=== PATIENT | female | born 1975 | race Caucasian/White ===

== ENCOUNTER 2017-08-22 05:19 | Inpatient (IN) | payer OTHER ==
[2017-08-22] MEDS ORDERED: OBEPIDURAL* 250 ML EPIDURAL ONE (08:38)
[2017-08-22 08:47] LABS: Hematocrit 37 % (35-47); Hemoglobin 12.4 g/dl (12.0-16.0); Mean Corpuscular HGB Conc 34 g/dl (31-36); Mean Corpuscular Hemoglobin 32 pg (27-31); Mean Corpuscular Volume 95 fL (80-97); Mean Platelet Volume 12 um3 (7.4-10.4); Platelet Count 124 10^3/ul (150-450); Red Blood Count 3.84 10^6/ul (4.0-5.4); Red Cell Distribution Width 13 % (10.5-15); White Blood Count 8.7 10^3/ul (3.5-10.8)
[2017-08-22] MEDS ORDERED: Famotidine TAB* 20 MG PO PRN (09:03)
[2017-08-22] MEDS ORDERED: Phenylephrine IV* 40 MCG/ML 10 ML SYRINGE IV PUSH PRN ×2 (09:03)
[2017-08-22] MEDS ORDERED: Sodium Citrate/Citric Acid* 15 ML UDC PO PRN (09:03)
[2017-08-22] MEDS ORDERED: EPHEDrine (Pressors)* 50 MG/ML VIAL IV PUSH PRN ×2 (09:03)
[2017-08-22 09:26] LABS: ABS Basophils 0 10^3/ul (0-0.2); ABS Eosinophils 0.2 10^3/ul (0-0.6); ABS Lymphocytes 1.6 10^3/ul (1.0-4.8); ABS Monocytes 0.6 10^3/ul (0-0.8); ABS Neutrophils 6.2 10^3/ul (1.5-7.7); ABS Nucleated RBC 0 10^3/ul; Eosinophil % 2.7 % (0-6); Lymphocyte % 18.7 % (25-47); Nucleated Red Blood Cells % 0.1
[2017-08-22] MEDS ORDERED: OBEPIDURAL* 250 ML EPIDURAL SCH (10:00)
[2017-08-22] MEDS ORDERED: Oxytocin in LR* 20 UNITS/1,000 ML BAG IVPB ONE (11:41)
[2017-08-22] MEDS ORDERED: Acetaminophen TAB* 325 MG PO PRN (17:49)
[2017-08-22] MEDS ORDERED: RHO D Immune Globulin (HUMAN)* 300 MCG = 1,500 I.U. INJ IM ONE (17:49)
[2017-08-22] MEDS ORDERED: Tetan/Diph/Pertus SYR(Tdap)* 0.5 ML SYR(BOOSTRIX) use SYR IM ONE (17:49)
[2017-08-22] MEDS ORDERED: Witch Hazel PAD* JAR TOPICAL PRN (17:49)
[2017-08-22] MEDS ORDERED: Dibucaine 1% 28.35 GM TUBE PR PRN (17:49)
[2017-08-22] MEDS ORDERED: Oxytocin in LR* 20 UNITS/1,000 ML BAG IVPB SCH (18:00)
[2017-08-22] MEDS: Ibuprofen TAB* 600 MG PO PRN (18:56)
[2017-08-22] MEDS ORDERED: Simethicone TAB* 80 MG TAB.CHEW PO SCH (21:00)
[2017-08-22] MEDS: Docusate CAP* 100 MG PO SCH (21:26)
[2017-08-23] MEDS: Ibuprofen TAB* 600 MG PO PRN ×4 (02:12→20:57)
[2017-08-23 06:56] LABS: Hematocrit 29 % (35-47); Hemoglobin 9.8 g/dl (12.0-16.0); Mean Corpuscular HGB Conc 34 g/dl (31-36); Mean Corpuscular Hemoglobin 32 pg (27-31); Mean Corpuscular Volume 95 fL (80-97); Red Blood Count 3.05 10^6/ul (4.0-5.4); Red Cell Distribution Width 13 % (10.5-15); White Blood Count 14.8 10^3/ul (3.5-10.8)
[2017-08-23 07:28] LABS: ABS Basophils 0.1 10^3/ul (0-0.2); ABS Eosinophils 0.1 10^3/ul (0-0.6); ABS Lymphocytes 1.8 10^3/ul (1.0-4.8); ABS Monocytes 0.9 10^3/ul (0-0.8); ABS Nucleated RBC 0 10^3/ul; Eosinophil % 0.5 % (0-6); Mean Platelet Volume 12 um3 (7.4-10.4); Nucleated Red Blood Cells % 0; Platelet Count 118 10^3/ul (150-450)
[2017-08-23] MEDS: Docusate CAP* 100 MG PO SCH ×3 (07:46→20:56)
[2017-08-23] MEDS: Ferrous Gluconate TAB* 324 MG TAB PO SCH ×2 (07:46→20:56)
[2017-08-24] MEDS: Ibuprofen TAB* 600 MG PO PRN (06:48)
--- NOTE | 2017-08-24 07:41 | PTEDU ---
Patient Name: KANDIS LYN KANDIS LYN selected video: BBOB: Nurturing Your Gorgeous &Growing Baby by to view on 08/24/2017 at 7:40:39 AM [id number]
[2017-08-24 08:02] VITALS: BP 117/71
[2017-08-24] MEDS: Ferrous Gluconate TAB* 324 MG TAB PO SCH (08:11)
[2017-08-24] MEDS: Docusate CAP* 100 MG PO SCH (08:11)
== END 2017-08-24 10:57 | disposition home or self-care (01) | DRG 775 ==
LOC: MCHOBOUT 05:19 → MCHOB 06:05
PROVIDERS: ADMIT Obstetrics & Gynecology; ATTEND Obstetrics & Gynecology
PROC: 10D07Z6 Extraction of Products of Conception, Vacuum, Via Natural or Artificial Opening (ICD-10-PCS; principal; 2017-08-22)
PROC: 0KQM0ZZ Repair Perineum Muscle, Open Approach (ICD-10-PCS; 2017-08-22)
DX: O32.6XX0 Maternal care for compound presentation, not applicable or unspecified (principal); D64.9 Anemia, unspecified; O70.1 Second degree perineal laceration during delivery; O90.81 Anemia of the puerperium; Z3A.39 39 weeks gestation of pregnancy; Z37.0 Single live birth
CPT/HCPCS: 36415; 85025; 85461; 86850; 86870; 86880; 86900; 86901; A9270-GY; J2790

== ENCOUNTER 2017-08-31 08:00 | Day surgery (SDC) | payer OTHER ==
[~2017-08-31 08:00] MED LIST: Buffered Lidocaine 0.9% SYRIN* 5 ML/SYR SYRINGE INTRADERM ONE; Dexamethasone IV* 4 MG/ML 1 ML (4 MG) IV SLOW PU ONE; Famotidine IV* 10 MG/ML 2 ML (20 mg) IV ONE
[2017-08-31] MEDS ORDERED: Buffered Lidocaine 0.9% SYRIN* 5 ML/SYR SYRINGE ONE (08:04)
[2017-08-31] MEDS ORDERED: Dexamethasone IV* 4 MG/ML 1 ML (4 MG) ONE (08:04)
[2017-08-31] MEDS ORDERED: Famotidine IV* 10 MG/ML 2 ML (20 mg) ONE (08:04)
[2017-08-31 08:55] LABS: ABS Basophils 0 10^3/ul (0-0.2); ABS Eosinophils 0.3 10^3/ul (0-0.6); ABS Lymphocytes 1.7 10^3/ul (1.0-4.8); ABS Monocytes 0.4 10^3/ul (0-0.8); ABS Neutrophils 3.2 10^3/ul (1.5-7.7); ABS Nucleated RBC 0 10^3/ul; Eosinophil % 4.9 % (0-6); Hematocrit 37 % (35-47); Hemoglobin 12.5 g/dl (12.0-16.0); Lymphocyte % 30.2 % (25-47); Mean Corpuscular HGB Conc 34 g/dl (31-36); Mean Corpuscular Hemoglobin 32 pg (27-31); Mean Corpuscular Volume 95 fL (80-97); Mean Platelet Volume 9 um3 (7.4-10.4); Nucleated Red Blood Cells % 0; Platelet Count 305 10^3/ul (150-450); Red Blood Count 3.89 10^6/ul (4.0-5.4); Red Cell Distribution Width 14 % (10.5-15); White Blood Count 5.5 10^3/ul (3.5-10.8)
[2017-08-31] MEDS ORDERED: Lidocaine 1% INJ* 10 MG/ML 30 ML SDV ONE (09:31)
[2017-08-31] MEDS ORDERED: Misoprostol TAB* 200 MCG ONE ×3 (09:31→10:23)
[2017-08-31] MEDS ORDERED: ceFOXitin 2 GM IVPREMIX* 50 ML IVPB ONE (09:50)
[2017-08-31] MEDS ORDERED: ceFOXitin(*) 1 GM VIAL ONE (09:51)
[2017-08-31] MEDS ORDERED: OXYTOCIN* 10 UNITS/ML 1 ML VIAL ONE (10:20)
[2017-08-31] MEDS ORDERED: Chloroprocaine 2%* 20 ML VIAL ONE (10:25)
[2017-08-31] MEDS ORDERED: Ketorolac INJ* 30 MG/ML 1 ML VIAL IV PRN (10:27)
[2017-08-31] MEDS ORDERED: Ondansetron INJ* 2 MG/ML VIAL IV PRN (10:27)
[2017-08-31] MEDS ORDERED: Naloxone* 0.4 MG/ML 1 ML VIAL IV PRN (10:27)
[2017-08-31] MEDS ORDERED: Ketorolac INJ* 30 MG/ML 1 ML VIAL ONE (12:03)
[2017-08-31 12:05] VITALS: BP 135/86
--- NOTE | 2017-08-31 23:09 | OP ---
OPERATIVE REPORT: DATE OF OPERATION: 08/31/17 DATE OF : 79 SURGEON: Radha Ojeda MD ULTRASOUND GUIDANCE: Josselin Marroquin CNM ANESTHESIOLOGIST: James Villa MD ANESTHESIA: Spinal. PRE-OP DIAGNOSIS: Retained products of conception. POST-OP DIAGNOSIS: Retained products of conception. OPERATIVE PROCEDURE: Dilation, evacuation, and curettage under ultrasound guidance. FINDINGS: Revealed anterior placental attachment, copious material removed, approximately 3-cm worth of placental tissues and fragments. Post removal, endometrial stripe clearly visible and thin. ESTIMATED BLOOD LOSS: 200 cc. URINE OUTPUT: 100 cc of clear yellow urine. FLUIDS: 1000 cc of crystalloid. COMPLICATIONS: None apparent. DISPOSITION: Stable to recovery room. DESCRIPTION OF PROCEDURE: The patient was placed in dorsal lithotomy position. Legs were placed in candy cane stirrups. Perineum and vagina were prepped and draped in a sterile standard fashion. The patient was identified with universal protocol for correct procedure, position, and patient. After universal protocol was completed, a sterile speculum was inserted, single tooth tenaculum was placed anterior cervix and and under ultrasound guidance, a suction curettage was carried out using a 10-mm curved suction curette. Several passes were required for complete removal of placental tissue. A sharp curettage was then performed under direct visualization with ultrasound guidance and minimal tissue was removed with ultrasound-guided curettage. Single tooth tenaculum removed. Cytotec was placed intrarectally 800 mcg and legs were placed in dorsal lithotomy position. The patient was returned to recovery room in stable condition. All sponge, needles, and blade counts were correct throughout the case. The patient tolerated the procedure well and we will await final pathology report to rule out placental accreta or abnormal placentation. [id number]/[facility] #: [id number] [facility]
== END 2017-08-31 12:30 | disposition home or self-care (01) ==
LOC: OR 08:00
PROVIDERS: ATTEND Obstetrics & Gynecology
DX: O72.2 Delayed and secondary postpartum hemorrhage (principal); N61.0 Mastitis without abscess
CPT/HCPCS: 36415; 85025; 86850; 86870; 86880; 86900; 86901; 88305; A9270-GY; J0694; J1100; J1885; J2400; J2590